=== PATIENT | female | born 1955 | race Hispanic/Latino ===

== ENCOUNTER 2017-07-03 20:55 | Inpatient (IN) | payer BC ==
[2017-07-03 21:39] LABS: Basophils % (Auto) 0.9 % (0.0-1.8); Eosinophils % (Auto) 1.7 % (0.0-4.3); Hematocrit 42.2 % (30.3-42.9); Hemoglobin 13.7 gm/dl (10.1-14.3); Mean Corpuscular HGB Conc 33 % (30-34); Mean Corpuscular Hemoglobin 27 pg (28-32); Mean Corpuscular Volume 82 fl (79-97); Platelet Count 283 K/mm3 (140-440); Red Blood Count 5.15 M/mm3 (3.65-5.03); Red Cell Distribution Width 14.4 % (13.2-15.2)
[2017-07-03 21:47] LABS: Anion Gap 18 mmol/L; BUN/Creatinine Ratio 23; Blood Urea Nitrogen 14 mg/dL (7-17); Calcium 10.1 mg/dL (8.4-10.2); Carbon Dioxide 23 mmol/L (22-30); Chloride 103.3 mmol/L (98-107); Glucose 92 mg/dL (65-100); Potassium 4.3 mmol/L (3.6-5.0); Sodium 140 mmol/L (137-145)
[2017-07-04] MEDS ORDERED: BABY ASPIRIN PO ONE (02:00)
--- NOTE | 2017-07-04 02:19 | Emergency Department Report ---
ED Chest Pain HPI - General Chief Complaint: Chest Pain Stated Complaint: CHEST PAIN Time Seen by Provider: 07/04/17 01:57 Source: patient Mode of arrival: Ambulatory Limitations: No Limitations - History of Present Illness Initial Comments: Patient is 61 years old female history of high blood pressure, hyperlipidemia, presented to the ER with left sided chest pain, pressure in nature, that radiated to her left arm. Patient stated this is a second episode since last week. It is associated with sweating and shortness of breath and continued for a few minutes and went away. She denied any cough, fever, nausea or vomiting. MD Complaint: chest pain -: Last night Onset: during rest Pain Location: left chest Quality: heaviness, pressure Consistency: intermittent - Related Data Home Medications Medication Instructions Recorded Confirmed Last Taken Atorvastatin Calcium 40 mg PO DAILY 07/04/17 07/04/17 Unknown Lisinopril 20 mg PO DAILY 07/04/17 07/04/17 Unknown Allergies Allergy/AdvReac Type Severity Reaction Status Date / Time No Known Allergies Allergy Unverified 07/03/17 21:06 Heart Score - HEART Score History: Moderately suspicious EKG: Non-specific Age: 45-65 Risk factors: 1-2 risk factors Troponin: < normal limit HEART Score: 4 - Critical Actions Critical Actions: 4-6 pts:12-16.6% risk of adverse cardiac event. Should be admitted ED Review of Systems ROS: Stated complaint: CHEST PAIN Other details as noted in HPI Comment: All other systems reviewed and negative Constitutional: denies: chills, fever ENT: denies: ear pain Respiratory: denies: cough Cardiovascular: chest pain. denies: palpitations, dyspnea on exertion, orthopnea, edema, syncope, paroxysmal nocturnal dyspnea Gastrointestinal: denies: abdominal pain, nausea, vomiting, diarrhea, constipation, hematemesis Neurological: denies: headache, weakness, numbness, paresthesias ED Past Medical Hx - Past Medical History Hx Hypertension: Yes Additional medical history: high cholesterol - Surgical History Additional Surgical History: C/S - Social History Smoking Status: Never Smoker Substance Use Type: None - Medications Home Medications: Home Medications Medication Instructions Recorded Confirmed Last Taken Type Atorvastatin Calcium 40 mg PO DAILY 07/04/17 07/04/17 Unknown History Lisinopril 20 mg PO DAILY 07/04/17 07/04/17 Unknown History ED Physical Exam - General Limitations: No Limitations General appearance: alert, in no apparent distress - Head Head exam: Present: atraumatic, normocephalic, normal inspection - Eye Eye exam: Present: normal appearance, PERRL, EOMI - ENT ENT exam: Present: normal exam, normal orophraynx, mucous membranes moist - Neck Neck exam: Present: normal inspection, full ROM - Respiratory Respiratory exam: Present: normal lung sounds bilaterally. Absent: respiratory distress, wheezes, rales, rhonchi, chest wall tenderness, accessory muscle use, decreased breath sounds, prolonged expiratory - Cardiovascular Cardiovascular Exam: Present: regular rate, normal rhythm, normal heart sounds - GI/Abdominal GI/Abdominal exam: Present: soft, normal bowel sounds. Absent: distended, tenderness, guarding, rebound, rigid, diminished bowel sounds, organomegaly, mass, bruit, pulsatile mass, hernia - Extremities Exam Extremities exam: Present: normal inspection, full ROM, normal capillary refill - Back Exam Back exam: Present: normal inspection, full ROM, CVA tenderness (L). Absent: tenderness, CVA tenderness (R), muscle spasm, paraspinal tenderness, vertebral tenderness - Neurological Exam Neurological exam: Present: alert, oriented X3, CN II-XII intact, normal gait - Skin Skin exam: Present: warm, intact, normal color. Absent: cyanosis, diaphoretic, erythema ED Course Vital Signs 07/03/17 07/03/17 07/04/17 21:04 21:06 02:00 Temperature 98.3 F 98.3 F Pulse Rate 62 65 63 Respiratory 18 18 16 Rate Blood Pressure 178/68 178/68 Blood Pressure 211/96 [Left] O2 Sat by Pulse 98 99 100 Oximetry 07/04/17 07/04/17 07/04/17 02:17 03:16 03:18 Temperature Pulse Rate 64 46 L Respiratory 16 16 27 H Rate Blood Pressure Blood Pressure 191/75 [Left] O2 Sat by Pulse 100 100 98 Oximetry 07/04/17 07/04/17 07/04/17 03:30 03:46 04:10 Temperature Pulse Rate 56 L 46 L Respiratory 17 23 Rate Blood Pressure 176/81 168/70 Blood Pressure [Left] O2 Sat by Pulse 96 98 100 Oximetry 07/04/17 07/04/17 04:17 04:30 Temperature Pulse Rate 45 L 63 Respiratory 25 H 25 H Rate Blood Pressure 180/80 Blood Pressure [Left] O2 Sat by Pulse 100 98 Oximetry ED Medical Decision Making - Lab Data Result diagrams: 07/03/17 21:18 07/03/17 21:18 - EKG Data -: EKG Interpreted by Me EKG shows normal: sinus rhythm Rate: normal - EKG Data Interpretation: no acute changes - Radiology Data Radiology results: image reviewed Chest x-ray no acute finding. - Medical Decision Making Discussed with Dr. Patricia Shields, I presented the patient to her, she agreed to admit the patient to her service. Critical care attestation.: If time is entered above; I have spent that time in minutes in the direct care of this critically ill patient, excluding procedure time. ED Disposition Clinical Impression: Chest pain Disposition: DC-09 OP ADMIT IP TO THIS HOSP Is pt being admited?: Yes Condition: Stable Instructions: Chest Pain (ED) Referrals: PRIMARY CARE, [Primary Care Provider] - 3-5 Days
[2017-07-04] MEDS ORDERED: APRESOLINE IV PRN (04:10)
[2017-07-04] MEDS ORDERED: PERCOCET 5/325 PO PRN (04:11)
[2017-07-04] MEDS ORDERED: DULCOLAX PR PRN (04:11)
[2017-07-04] MEDS ORDERED: MILK OF MAGNESIA PO PRN (04:11)
[2017-07-04] MEDS ORDERED: ZOFRAN IV PRN (04:11)
[2017-07-04] MEDS ORDERED: TYLENOL PO PRN (04:11)
--- NOTE | 2017-07-04 04:34 | History and Physical Report ---
History of Present Illness Date of examination: 07/04/17 History of present illness: 61-year-old woman with a history of hypertension, hyperlipidemia comes to the emergency room with complaints of chest pain in the left substernal area which she describes as a squeezing sensation, intermittent in nature over 10 minutes, intensity 5/10, no radiation, she cannot identify exacerbating or relieving factor. Admits to nausea, shortness of breath, no vomiting, diaphoresis or palpitation Review Of Systems: Constitutional: no weight loss Ears, eyes, nose, mouth and throat: no nasal congestion, no nasal discharge, no sinus pressure, blurry vision, diplopia Neck: No neck pain or rigidity. Cardiovascular: NO orthopnea, palpitations Respiratory: No shortness of breath, cough Gastrointestinal: NO abdominal pain, hematochezia Genitourinary : no dysuria, frequency , hematuria Musculoskeletal: no muscle ache Integumentary: no rash, no pruritis Neurological: no parathesias, focal weakness Endocrine: no cold or heat intolerance Hematologic/Lymphatic: no easy bruising, no easy bleeding, no gland swelling Allergic/Immunologic: no urticaria, no angioedema. PAST MEDICAL HISTORY:hypertension , hyperlipidemia PAST SURGICAL HISTORY: FAILY HISTORY:hypertension SOCIAL HISTORY: Denies tobacco, alcohol, drug Medications and Allergies Allergies Allergy/AdvReac Type Severity Reaction Status Date / Time No Known Allergies Allergy Unverified 07/03/17 21:06 Home Medications Medication Instructions Recorded Confirmed Last Taken Type AtorvaSTATin [Lipitor] 40 mg PO QHS #30 tablet 07/04/17 Unknown Rx Hydrochlorothiazide [HCTZ] 25 mg PO QDAY #30 tablet 07/04/17 Unknown Rx Lisinopril [Zestril TAB] 40 mg PO QDAY #30 tablet 07/04/17 Unknown Rx Active Meds: Active Medications Acetaminophen (Tylenol) 650 mg PO Q4H PRN PRN Reason: Pain MILD(1-3)/Fever >100.5/FERRO Bisacodyl (Dulcolax) 10 mg [place] QDAY PRN PRN Reason: Constipation unrelieved by MOM Hydralazine HCl (Apresoline) 5 mg IV Q6HR PRN PRN Reason: Hypertension Magnesium Hydroxide (Milk Of Magnesia) 30 ml PO Q4H PRN PRN Reason: Constipation Ondansetron HCl (Zofran) 4 mg IV Q8H PRN PRN Reason: N/V unrelieved by Reglan Oxycodone/Acetaminophen (Percocet 5/325) 1 tab PO Q6H PRN PRN Reason: Pain, Moderate (4-6) Exam - Physical Exam Narrative exam: Gen. appearance: Patient lying in bed in no acute distress HEENT: Normocephalic/atraumatic, pupils equal round reactive to light, extra alkaline movement intact, no scleral icterus, no JVD or thyromegaly or nodule, neck is supple, mucous membrane moist, no erythema or exudate Heart: S1-S2, regular rate and rhythm Lungs: Clear to auscultation bilateral breathing comfortable Abdomen: Positive bowel sounds, nontender, nondistended, no organomegaly Extremities: No edema, cyanosis, clubbing Neuro:: Oriented 3 , cranial nerves II-12 intact, speech, motor intact Skin: No rash, nodules, warm dry - Constitutional Vitals: Temp Pulse Resp BP Pulse Ox 98.3 F 63 25 H 180/80 98 07/03/17 21:06 07/04/17 04:30 07/04/17 04:30 07/04/17 04:30 07/04/17 04:30 Results - Labs CBC & Chem 7: 07/05/17 06:21 07/05/17 06:21 Labs: Abnormal lab results 07/03/17 07/03/17 Range/Units 21:18 21:18 RBC 5.15 H (3.65-5.03) M/mm3 MCH 27 L (28-32) pg Lymph % (Auto) 48.3 H (13.4-35.0) % [place] % (Auto) 9.2 H (0.0-7.3) % Seg Neutrophils % 39.9 L (40.0-70.0) % Creatinine 0.6 L (0.7-1.2) mg/dL - Imaging and Cardiology EKG: image reviewed Chest x-ray: image reviewed Assessment and Plan Assessment Hypertensive urgency Chest pain secondary to #1 hypertension hyperlipidemia Plan Admit to medicine Start IV hydralazine as needed for blood pressure control, first assessment Check cardiac enzymes, obtain stress test Start aspirin, IV morphine, IV Levaquin DVT prophylaxis
[2017-07-04 05:18] LABS: Creatine Kinase MB 1.6 ng/mL (0.0-4.0)
[2017-07-04 05:19] LABS: Creatine Kinase 136 units/L (30-135)
[2017-07-04] MEDS ORDERED: LEXISCAN IV ONE ×2 (08:04→08:09)
[2017-07-04 08:36] LABS: Creatine Kinase MB 1.8 ng/mL (0.0-4.0)
[2017-07-04 08:39] LABS: Creatine Kinase 135 units/L (30-135)
--- NOTE | 2017-07-04 09:11 | XRay Report ---
AP CHEST: HISTORY: chest pain AP view of the chest demonstrates a normal mediastinal and cardiac contour with clear lungs and normal bony and soft tissue structures. IMPRESSION: Unremarkable AP chest.
--- NOTE | 2017-07-04 13:40 | Event Note ---
Date: 07/04/17 Discharge note 61-year-old woman with past medical history of hypertension who presented to the hospital with chest pain. She went on to have a nuclear stress test that was negative for ischemia. Chest sounds have hypertensive urgency, and her blood pressure medications were optimized, after which she was subsequently discharged home. Discharge diagnoses Hypertensive urgency Chest pain due to hypertensive urgency
[2017-07-04 15:47] LABS: Creatine Kinase MB 1.6 ng/mL (0.0-4.0)
[2017-07-04 18:39] LABS: Creatine Kinase MB 1.5 ng/mL (0.0-4.0)
[2017-07-04 21:21] LABS: Creatine Kinase MB 1.5 ng/mL (0.0-4.0)
[2017-07-05 06:50] LABS: Basophils % (Auto) 1.2 % (0.0-1.8); Eosinophils % (Auto) 2.6 % (0.0-4.3); Hematocrit 43.6 % (30.3-42.9); Hemoglobin 14.4 gm/dl (10.1-14.3); Mean Corpuscular HGB Conc 33 % (30-34); Mean Corpuscular Hemoglobin 27 pg (28-32); Mean Corpuscular Volume 81 fl (79-97); Platelet Count 296 K/mm3 (140-440); Red Cell Distribution Width 14.3 % (13.2-15.2); White Blood Count 5.9 K/mm3 (4.5-11.0)
[2017-07-05 07:05] LABS: BUN/Creatinine Ratio 22; Blood Urea Nitrogen 11 mg/dL (7-17); Carbon Dioxide 24 mmol/L (22-30); Chloride 104.9 mmol/L (98-107); Glucose 100 mg/dL (65-100); Sodium 142 mmol/L (137-145)
[2017-07-05 07:24] LABS: Anion Gap 18 mmol/L; Potassium 4.5 mmol/L (3.6-5.0)
[2017-07-05] MEDS ORDERED: ATORVASTATIN CALCIUM 40 MG PO SCH (10:00)
[2017-07-05 12:54] VITALS: BP 137/84
--- NOTE | 2017-07-05 12:55 | Discharge Summary ---
Providers - Providers Date of Admission: 07/04/17 04:11 Attending physician: AUSTIN KNAPP MD Primary care physician: BRAZER CRAWLER TORCH Hospitalization Condition: Stable Hospital course: 61-year-old woman with past medical history of hypertension who presented to the hospital with chest pain. She went on to have a nuclear stress test that was negative for ischemia. Chest pain was attributed hypertensive urgency, and her blood pressure medications were optimized, after which she was subsequently discharged home. Discharge diagnoses Hypertensive urgency Chest pain due to hypertensive urgency Disposition: DC-01 TO HOME OR SELFCARE Time spent for discharge: 33 minutes Core Measure Documentation - Palliative Care Palliative Care/ Comfort Measures: Not Applicable - Core Measures Any of the following diagnoses?: none Exam - Constitutional Vitals: Temp Pulse Resp BP Pulse Ox 98.2 F 56 L 18 137/84 99 07/05/17 12:38 07/05/17 12:38 07/05/17 12:38 07/05/17 12:38 07/05/17 12:38 General appearance: Present: no acute distress, well-nourished - EENT Eyes: Present: PERRL ENT: hearing intact, clear oral mucosa - Neck Neck: Present: supple, normal ROM - Respiratory Respiratory effort: normal Respiratory: bilateral: CTA - Cardiovascular Heart Sounds: Present: S1 & S2. Absent: rub, click - Extremities Extremities: pulses symmetrical, No edema Peripheral Pulses: within normal limits - Abdominal General gastrointestinal: Present: soft, non-tender, non-distended, normal bowel sounds Female genitourinary: Present: normal - Integumentary Integumentary: Present: clear, warm, dry - Musculoskeletal Musculoskeletal: gait normal, strength equal bilaterally - Psychiatric Psychiatric: appropriate mood/affect, intact judgment & insight - Neurologic Neurologic: CNII-XII intact, moves all extremities Plan Follow up with: [facility] [Provider Group] - 7 Days PRIMARY CARE, [Primary Care Provider] - 3-5 Days Prescriptions: AtorvaSTATin [Lipitor] 40 mg PO QHS #30 tablet Hydrochlorothiazide [HCTZ] 25 mg PO QDAY #30 tablet Lisinopril [Zestril TAB] 40 mg PO QDAY #30 tablet
--- NOTE | 2017-07-05 12:55 | Progress Note ---
Hospitalist Physical - Constitutional Vitals: Temp Pulse Resp BP Pulse Ox 98.2 F 56 L 18 137/84 99 07/05/17 12:38 07/05/17 12:38 07/05/17 12:38 07/05/17 12:38 07/05/17 12:38 Results - Labs CBC & Chem 7: 07/05/17 06:21 12 06:21 Labs: Laboratory Last Values WBC 5.9 K/mm3 (4.5-11.0) 07/05/17 06:21 RBC 5.40 M/mm3 (3.65-5.03) H 07/05/17 06:21 Hgb 14.4 gm/dl (10.1-14.3) H 07/05/17 06:21 Hct 43.6 % (30.3-42.9) H 07/05/17 06:21 MCV 81 fl (79-97) 07/05/17 06:21 MCH 27 pg (28-32) L 07/05/17 06:21 MCHC 33 % (30-34) 07/05/17 06:21 RDW 14.3 % (13.2-15.2) 07/05/17 06:21 Plt Count 296 K/mm3 (140-440) 07/05/17 06:21 Lymph % (Auto) 40.0 % (13.4-35.0) H 07/05/17 06:21 [place] % (Auto) 11.2 % (0.0-7.3) H 07/05/17 06:21 Eos % (Auto) 2.6 % (0.0-4.3) 07/05/17 06:21 Baso % (Auto) 1.2 % (0.0-1.8) 07/05/17 06:21 Lymph # 2.4 K/mm3 (1.2-5.4) 07/05/17 06:21 [place] # 0.7 K/mm3 (0.0-0.8) 07/05/17 06:21 Eos # 0.2 K/mm3 (0.0-0.4) 07/05/17 06:21 Baso # 0.1 K/mm3 (0.0-0.1) 07/05/17 06:21 Seg Neutrophils % 45.0 % (40.0-70.0) 07/05/17 06:21 Seg Neutrophils # 2.7 K/mm3 (1.8-7.7) 07/05/17 06:21 Sodium 142 mmol/L (137-145) 07/05/17 06:21 Potassium 4.5 mmol/L (3.6-5.0) 07/05/17 06:21 Chloride 104.9 mmol/L (98-107) 07/05/17 06:21 Carbon Dioxide 24 mmol/L (22-30) 07/05/17 06:21 Anion Gap 18 mmol/L 07/05/17 06:21 BUN 11 mg/dL (7-17) 07/05/17 06:21 Creatinine 0.5 mg/dL (0.7-1.2) L 07/05/17 06:21 Estimated GFR > 60 ml/min 07/05/17 06:21 BUN/Creatinine Ratio 22 % 07/05/17 06:21 Glucose 100 mg/dL (65-100) 07/05/17 06:21 Calcium 10.0 mg/dL (8.4-10.2) 07/05/17 06:21 Total Creatine Kinase 126 units/L (30-135) 07/04/17 20:41 CK-MB (CK-2) 1.5 ng/mL (0.0-4.0) 07/04/17 20:41 CK-MB (CK-2) Rel Index 1.1 (0-4) 07/04/17 20:41 Troponin T < 0.010 ng/mL (0.00-0.029) 07/04/17 07:57
--- NOTE | 2017-07-14 05:50 | Treadmill Report ---
THALLIUM STRESS TEST LEFT VENTRICLE: Left ventricular chamber size is within normal. Perfusion study demonstrates homogeneous uptake of the tracer in all segments, no significant perfusion defects identified. Gated analysis demonstrates normal left ventricular systolic function, ejection fraction 68%. CONCLUSION: Normal myocardial perfusion study. JOB# [id number] CA/NTS
== END 2017-07-05 15:41 | disposition home or self-care (01) | DRG 305 ==
LOC: ED 20:55 → 4A 07-04 04:11
PROVIDERS: ADMIT Internal Medicine; ATTEND Internal Medicine
DX: I16.0 Hypertensive urgency (principal); I10 Essential (primary) hypertension; E78.5 Hyperlipidemia, unspecified; Z82.49 Family history of ischemic heart disease and other diseases of the circulatory system
CPT/HCPCS: 36415; 71010; 78452; 80048; 82550; 82553; 84484; 85025; 93005; 93010; 93017; 96374; 99285; A9270-GY; A9502; J0360; J2785